=== PATIENT | male | born 1970 | race African-American/Black ===

== ENCOUNTER 2019-02-19 20:34 | Emergency (ER) | payer BC ==
[2019-02-19] MEDS ORDERED: TETRACAINE HCL 0.5% 4ML OPTH ONE (20:43)
[2019-02-19] MEDS ORDERED: FLUORESCEIN SODIUM 1 MG/WRAP ONE (20:43)
[2019-02-19] MEDS ORDERED: IBUPROFEN 400 MG TAB ONE (21:17)
--- NOTE | 2019-02-19 23:06 | EDPHYS ---
Physician Documentation [facility] Name: Mekhi Kapadia Age: 48 yrs Sex: Male : 1970 Arrival Date: 02/19/2019 Time: 20:38 Bed 18 Private MD: ED Physician Geronimo Swartz HPI: 02/19 21:58 This 48 yrs old Black Male presents to ER via Ambulatory with complaints of Eye Injury. tw4 21:58 The patient is experiencing pain. The patient sustained an abrasion, contusion. Onset: tw4 The symptoms/episode began/occurred today. Duration: the symptoms are continuous. Aggravated by blinking, Alleviated by nothing. Patient wears soft contacts. Severity of symptoms: At their worst the symptoms were mild in the emergency department the symptoms are unchanged. The patient has not experienced similar symptoms in the past. Historical: - Allergies: 21:44 PENICILLINS; wh - Home Meds: 21:44 None [Active]; wh - PMHx: 21:44 None; wh - PSHx: 21:44 None; - Immunization history:: Adult Immunizations unknown. - Social history:: Smoking status: Patient/guardian denies using tobacco. - Ebola Screening: : Patient negative for fever greater than or equal to 101.5 degrees Fahrenheit, and additional compatible Ebola Virus Disease symptoms Patient denies exposure to infectious person. ROS: 21:58 Constitutional: Negative for fever, chills, and weight loss, Cardiovascular: Negative tw4 for chest pain, palpitations, and edema, Respiratory: Negative for shortness of breath, cough, wheezing, and pleuritic chest pain, Abdomen/GI: Negative for abdominal pain, nausea, vomiting, diarrhea, and constipation, MS/Extremity: Negative for injury and deformity, Skin: Negative for injury, rash, and discoloration. 21:58 Eyes: Positive for injury or acute deformity, redness, Negative for acute changes, blurry vision, discharge, foreign body sensation, photophobia, swelling, tearing, visual disturbance. Exam: 21:58 Constitutional: This is a well developed, well nourished patient who is awake, alert, tw4 and in no acute distress. Head/Face: Normocephalic, atraumatic. Cardiovascular: Regular rate and rhythm with a normal S1 and S2. No gallops, murmurs, or rubs. Normal PMI, no JVD. No pulse deficits. Respiratory: Lungs have equal breath sounds bilaterally, clear to auscultation and percussion. No rales, rhonchi or wheezes noted. No increased work of breathing, no retractions or nasal flaring. Abdomen/GI: Soft, non-tender, with normal bowel sounds. No distension or tympany. No guarding or rebound. No evidence of tenderness throughout. Back: No spinal tenderness. No costovertebral tenderness. Full range of motion. MS/ Extremity: Pulses equal, no cyanosis. Neurovascular intact. Full, normal range of motion. Neuro: Awake and alert, GCS 15, oriented to person, place, time, and situation. Cranial nerves II-XII grossly intact. Motor strength 5/5 in all extremities. Sensory grossly intact. Cerebellar exam normal. Normal gait. 21:58 Eyes: Periorbital structures: contusion, that is moderate, on the left lower eyelid, ecchymosis, on the left lower eyelid, Pupils: no acute changes, equal, round, and reactive to light and accomodation, Extraocular movements: no acute changes, Conjunctiva: injected, Corneas: abrasion, that is small, approximately 2 mm(s), at 6 o'clock, a fluorescein strip employed to appreciate the findings. Vital Signs: 20:52 BP 153 / 103; Pulse 74; Resp 18; Temp 98.2(O); Pulse Ox 100% on R/A; Weight 102.06 kg oe (R); Height 6 ft. 0 in. (182.88 cm); Pain 5/10; 21:47 BP 154 / 94; Pulse 76; Resp 18; Pulse Ox 99% on R/A; wh 23:30 BP 151 / 98; Pulse 62; Resp 18; Pulse Ox 100% on R/A; wh 20:52 Body Mass Index 30.52 (102.06 kg, 182.88 cm) oe Visual Acuity: 21:45 Left Eye Visual acuity 20/200, Reactive To Accomodation; Right Eye Visual acuity 20/20, wh Reactive To Accomodation; Without Lenses; MDM: 20:43 Patient medically screened. tw4 02/20 02:16 Differential diagnosis: Corneal abrasion of left eye. Corneal ulcer of left eye. tw4 Infectious conjunctivitis in. Data reviewed: vital signs, nurses notes. Data interpreted: Pulse oximetry: Interpretation: normal. Counseling: I had a detailed discussion with the patient and/or guardian regarding: the historical points, exam findings, and any diagnostic results supporting the discharge/admit diagnosis, radiology results. Special discussion: I discussed with the patient/guardian in detail that at this point there is no indication for admission to the hospital. It is understood, however, that if the symptoms persist or worsen the patient needs to return immediately for re-evaluation. ED course: . ED course: CT revealed medial and inferior orbital wall fracture without entrapment. pt instructed to followup with ophthalmology. 02/19 21:21 Order name: Facial Bones W/ Mpr EDMS Administered Medications: 02/19 21:21 Drug: Motrin 800 mg Route: PO; 02/20 00:11 Follow up: Response: No adverse reaction; Pain is decreased Disposition: 02/19/19 23:05 Discharged to Home. Impression: Injury of conjunctiva and corneal abrasion without foreign body, left eye, Fracture of orbital floor, FRACTURE OF THE MEDIAL ORBITAL WALL RIGHT. - Condition is Stable. - Discharge Instructions: Eye Contusion, Corneal Abrasion, [id number], Head Injury, Adult, [id number], Orbital Floor Fracture Without Entrapment. - Prescriptions for Clindamycin HCl 300 mg Oral Capsule - take 1 capsule by ORAL route every 6 hours for 10 days; 40 capsule. Vigamox 0.5 % Ophthalmic Drops - instill 1 drop by OPHTHALMIC route every 8 hours for 7 days; 5 milliliter. Ibuprofen 800 mg Oral Tablet - take 1 tablet by ORAL route every 8 hours As needed take with food; 30 tablet. - Medication Reconciliation Form, Thank You Letter, Antibiotic Education, Prescription Opioid Use form. - Follow up: Pia Selby MD; When: Upon discharge from the Emergency Department; Reason: If symptoms return, Recheck today's complaints, Continuance of care. Follow up: Dov Clemente MD; When: Tomorrow; Reason: Recheck today's complaints, Continuance of care. Follow up: Jose David Clemente MD; When: Tomorrow; Reason: Recheck today's complaints, Continuance of care. Follow up: Sarah Harris MD; When: Today; Reason: Recheck today's complaints, Continuance of care. Follow up: Zana Vogel MD; When: Today; Reason: Recheck today's complaints, Continuance of care. - Problem is new. - Symptoms are unchanged. Signatures: Dispatcher [employer] EDMS Mace Lemuel Geronimo Ramirez MD MD tw4 Corrections: (The following items were deleted from the chart) 02/19 21:21 21:17 Maxillofacial W/Wo+CT.RAD.BRZ ordered. [facility] 23:40 23:05 02/19/2019 23:05 Discharged to Home. Impression: Injury of conjunctiva and wh corneal abrasion without foreign body, left eye; Fracture of orbital floor; FRACTURE OF THE MEDIAL ORBITAL WALL RIGHT. Condition is Stable. Forms are Medication Reconciliation Form, Thank You Letter, Antibiotic Education, Prescription Opioid Use. Follow up: Pia Selby; When: Upon discharge from the Emergency Department; Reason: If symptoms return, Recheck today's complaints, Continuance of care. Follow up: Dov Clemente; When: Tomorrow; Reason: Recheck today's complaints, Continuance of care. Follow up: Jose David Clemente; When: Tomorrow; Reason: Recheck today's complaints, Continuance of care. Follow up: Sarah Harris; When: Today; Reason: Recheck today's complaints, Continuance of care. Follow up: Zana Vogel; When: Today; Reason: Recheck today's complaints, Continuance of care. Problem is new. Symptoms are unchanged. tw4
--- NOTE | 2019-02-19 23:06 | ER ---
Nurse's Notes [facility] Name: Mekhi Kapadia Age: 48 yrs Sex: Male : 1970 Arrival Date: 02/19/2019 Time: 20:38 Bed 18 Private MD: Diagnosis: Injury of conjunctiva and corneal abrasion without foreign body, left eye;Fracture of orbital floor;FRACTURE OF THE MEDIAL ORBITAL WALL RIGHT Presentation: 02/19 20:46 Presenting complaint: Patient states: Was at football game and fell out of the stands; lp1 Injury to left eye, redness noted with abrasions;. Transition of care: patient was not received from another setting of care. Mechanism of Injury: Fall from standing position. Onset of symptoms was February 19, 2019. Risk Assessment: Do you want to hurt yourself or someone else? Patient reports no desire to harm self or others. Care prior to arrival: None. 20:46 Method Of Arrival: Ambulatory lp1 20:46 Acuity: LAURI 2 lp1 21:44 The patient denies any loss of vision. Initial Sepsis Screen: Does the patient meet any 2 criteria? No. Patient's initial sepsis screen is negative. Does the patient have a suspected source of infection? No. Patient's initial sepsis screen is negative. Historical: - Allergies: 21:44 PENICILLINS; - Home Meds: 21:44 None [Active]; - PMHx: 21:44 None; - PSHx: 21:44 None; - Immunization history:: Adult Immunizations unknown. - Social history:: Smoking status: Patient/guardian denies using tobacco. - Ebola Screening: : Patient negative for fever greater than or equal to 101.5 degrees Fahrenheit, and additional compatible Ebola Virus Disease symptoms Patient denies exposure to infectious person. Screenin:47 Abuse screen: Denies threats or abuse. Denies injuries from another. Nutritional lp1 screening: No deficits noted. Tuberculosis screening: No symptoms or risk factors identified. Fall Risk None identified. Assessment: 21:41 General: Appears in no apparent distress. Behavior is calm, cooperative, appropriate for age. Pain: Complains of pain in left eye Pain does not radiate. Pain currently is 5 out of 10 on a pain scale. Quality of pain is described as aching, Pain began 2 hours ago. Neuro: Level of Consciousness is awake, alert, obeys commands, Oriented to person, place, time, situation, Appropriate for age. Cardiovascular: Capillary refill < 3 seconds. Respiratory: Airway is patent Respiratory effort is even, unlabored, Respiratory pattern is regular, symmetrical. GI: Abdomen is flat, non-distended. : No signs and/or symptoms were reported regarding the genitourinary system. EENT: Eyes Bruising around the eyes. Sclera/Cornea. Derm: Skin is intact, is healthy with good turgor, Skin is pink, warm \T\ dry. normal. Musculoskeletal: Circulation, motion, and sensation intact. 22:30 Reassessment: Patient appears in no apparent distress at this time. No changes from previously documented assessment. Patient and/or family updated on plan of care and expected duration. Pain level reassessed. Patient is alert, oriented x 3, equal unlabored respirations, skin warm/dry/pink. 23:45 Reassessment: Patient appears in no apparent distress at this time. No changes from previously documented assessment. Patient and/or family updated on plan of care and expected duration. Pain level reassessed. Patient is alert, oriented x 3, equal unlabored respirations, skin warm/dry/pink. Vital Signs: 20:52 BP 153 / 103; Pulse 74; Resp 18; Temp 98.2(O); Pulse Ox 100% on R/A; Weight 102.06 kg oe (R); Height 6 ft. 0 in. (182.88 cm); Pain 5/10; 21:47 BP 154 / 94; Pulse 76; Resp 18; Pulse Ox 99% on R/A; wh 23:30 BP 151 / 98; Pulse 62; Resp 18; Pulse Ox 100% on R/A; wh 20:52 Body Mass Index 30.52 (102.06 kg, 182.88 cm) oe Visual Acuity: 21:45 Left Eye Visual acuity 20/200, Reactive To Accomodation; Right Eye Visual acuity 20/20, wh Reactive To Accomodation; Without Lenses; ED Course: 20:38 Patient arrived in ED. cf2 20:43 Geronimo Swartz MD is Attending Physician. tw4 20:43 Lemuel Mace is Primary Nurse. wh 20:47 Triage completed. lp1 20:47 Arm band placed on. lp1 21:33 Facial Bones W/ Mpr In Process Unspecified. EDMS 21:44 No provider procedures requiring assistance completed. Patient did not have IV access wh during this emergency room visit. 21:45 Patient has correct armband on for positive identification. Bed in low position. Call wh light in reach. Side rails up X 1. Pulse ox on. NIBP on. 23:04 Pia Selby MD is Referral Physician. tw4 23:04 Dov Clemente MD is Referral Physician. tw4 23:04 Jose David Clemente MD is Referral Physician. tw4 23:04 Sarah Harris MD is Referral Physician. tw4 23:04 Zana Vogel MD is Referral Physician. tw4 Administered Medications: 21:21 Drug: Motrin 800 mg Route: PO; 02/20 00:11 Follow up: Response: No adverse reaction; Pain is decreased Outcome: 02/19 23:05 Discharge ordered by MD. tw4 23:39 Discharged to home ambulatory. 23:39 Condition: stable 23:39 Discharge instructions given to patient, family, Instructed on discharge instructions, follow up and referral plans. medication usage, POC Orbital fracture and eye contusion Demonstrated understanding of instructions, follow-up care, medications, POC Prescriptions given X 3. 23:40 Patient left the ED. Signatures: Dispatcher [employer] EDMS Inna Allen RN RN lp1 Robinson Raya Winsy Geronimo Swartz MD MD tw4 Marielle Lara cf2 Corrections: (The following items were deleted from the chart) 20:57 20:52 BP 153 / 103; Pulse 74bpm; Resp 18bpm; Pulse Ox 100% RA; Temp 98.2F Oral; Pain oe 5/10; oe 22:06 21:45 Right Eye Without Lenses,, Reactive To Accomodation, Left Eye Without Lenses,, wh Reactive To Accomodation
[2019-02-20 00:59] VITALS: TEMP 98.2
[2019-02-20 01:00] VITALS: BP 154/94; O2SAT 99
--- NOTE | 2019-02-20 10:44 | RAD REPORT ---
EXAM DESCRIPTION: CT - Facial Bones W/ Mpr - 02/20/2019 1:22 am CLINICAL HISTORY: TRAUMA COMPARISON: None. TECHNIQUE: CT examination of the facial bones performed on multi-detector CT scanner without intrave nous contrast administration. Sagittal and coronal reformations are obtained. Automatic exposure control (A EC), mA and/or kV adjustment by patient size, and/or iterative reconstr uctive technique was used, per departmental dose optimization program, during the performance of the CT examination. FINDINGS: Fracture of the floor of the left bony orbit is noted. Presence of small amounts of air ar e noted in the retrobulbar left orbit. Small amount of herniation of the orbital fat is noted inferio rly in the medial aspect of the left infraorbital region. Presence of fracture of the lamina Juanita of the medial wall of the left orbit is noted. Small amount of herniation of the medial orbital fat is noted in the region of the ethmoid air cell . Mucus retention cyst is seen in the left axillary si nus. Presence of air is also noted in the infraorbital region of the left cheek. No definite evidence of nasal bone fractures or deformity is noted. No evidence of opacification of the paranasal sinuses are seen. IMPRESSION: Fractures of the inferior and medial best of the left orbit. Presence of air in the per iorbital and retrobulbar region. Electronically signed by: Tammy Millan MD 02/19/2019 9:44 PM CDT Due to temporary technical issues with the PACS/Fluency reporting system, reports are being signed by the in house radiologist as a courtesy to ensure prompt reporting. The interpreting radiologist is f isakly responsible for the content of the report.
== END 2019-02-19 23:40 | disposition home or self-care (01) ==
LOC: ER 20:34
DX: S02.32XA Fracture of orbital floor, left side, initial encounter for closed fracture (principal); S02.831A Fracture of medial orbital wall, right side, initial encounter for closed fracture; W10.8XXA Fall (on) (from) other stairs and steps, initial encounter; Y93.9 Activity, unspecified; Y92.321 Football field as the place of occurrence of the external cause; Z88.0 Allergy status to penicillin
CPT/HCPCS: 70486; 76377; 84153; 99284